=== PATIENT | female | born 1965 | race Caucasian/White ===

== ENCOUNTER 2018-05-20 09:46 | Emergency (ER) | END 2018-05-20 10:54 | disposition home or self-care (01) ==

== ENCOUNTER 2018-11-22 18:51 | Emergency (ER) | payer BC ==
[~2018-11-22] VITALS: Ht 162.6 cm; Wt 79.4 kg
[~2018-11-22 18:51] MED LIST: ACET325T33 PO; BENZ-6 PO; CETI1TAB6 PO; FLUT9.9S NASAL; HC30CR25 TOP; SODI30SP2 NS
[2018-11-22 19:00] VITALS: Ht 162.6 cm; Wt 79.4 kg
[2018-11-22] MEDS ORDERED: ONDANSETRON 4 MG INJ IV STA (20:52)
[2018-11-22] MEDS ORDERED: KETOROLAC 15 MG INJ IV STA (20:52)
[2018-11-22] MEDS ORDERED: SOD CHLORIDE 0.9% 1,000 ML IV STA (20:52)
--- NOTE | 2018-11-22 22:26 | ERD ---
ER Documentation Chief Complaint Chief Complaint abd pain/vomiting/diarrhea x 1 day HPI 53-year-old woman complaining of abdominal cramping diffusely, vomiting, diarrhea times 1 day. She has had no blood per rectum or melena, no fevers or chills, no chest pain or shortness of breath, she states because of the number of diarrhea episode she suspects dehydration and feels weak. She has had no unusual oral intake and no sick contacts. ROS All systems reviewed and are negative except as per history of present illness. Medications Home Meds Active Scripts Acetaminophen* (Tylenol*) 325 Mg Tablet, 2 TAB PO Q6 PRN for PAIN AND OR ELEVATED TEMP, #30 TAB Prov:ALEXA MOELLER PA-C 05/20/18 Fluticasone Propionate (Flonase Allergy Relief) 9.9 Ml Prentice.susp, 1 SPRAY NASAL BID for 28 Days, #1 BOTTLE TO EACH NOSTRIL Prov:ALEXA MOELLER PA-C 05/20/18 Reported Medications Ibuprofen* (Ibuprofen*) 600 Mg Tablet, 600 MG PO Q6H PRN for PAIN LEVEL 6-10, TAB 11/22/18 Discontinued Scripts Hydrocortisone* Topical (Hydrocortisone* Topical) 2.5%-28.3 Gm Cream..g., 1 APPLIC TOP BID, #1 TUB Prov:ALEXA MOELLER PA-C 05/20/18 Sodium Chloride (Saline Nasal Prentice) 30 Ml Prentice, 30 ML NS BID for 14 Days, SPRAY Prov:ALEXA MOELLER PA-C 05/20/18 Benzonatate* (Tessalon Perle*) 100 Mg Capsule, 100 MG PO Q8H PRN for COUGH, #30 CAP Prov:ALEXA MOELLER PA-C 05/20/18 Cetirizine/Pseudoephedrine (Zyrtec-D) 5-120 Mg Tab.er.12h, 1 TAB PO Q12, #20 TAB Prov:ALEXA MOELLERC 05/20/18 Allergies Allergies: Coded Allergies: No Known Allergy (Unverified , 05/20/18) PMhx/Soc History of Surgery: Yes (cholecystectomy,R SHOULDER AND WRIST SX,TONSILECTOMY,S INUS SX,) Anesthesia Reaction: No Hx Neurological Disorder: No Hx Respiratory Disorders: No Hx Cardiac Disorders: Yes (palpitations, heart murmur) Hx Psychiatric Problems: No Hx Miscellaneous Medical Probl: Yes (factor v leiden, budging disk) Hx Alcohol Use: No Hx Substance Use: No Hx Tobacco Use: No Smoking Status: Never smoker FmHx Family History: No diabetes Physical Exam Vitals Vital Signs Date Temp Pulse Resp B/P (MAP) Pulse Ox O2 O2 Flow FiO2 Time Delivery Rate 11/22/18 98.6 65 20 99/61 (74) 96 Room Air 23:25 11/22/18 98.6 71 17 114/63 98 Room Air 22:00 (80) 11/22/18 98.6 73 18 123/69 99 Room Air 20:22 (87) 11/22/18 98.4 73 18 124/58 97 19:00 (80) Physical Exam Const: No acute distress Head: Atraumatic Eyes: Normal Conjunctiva ENT: Normal External Ears, Nose and Mouth. Neck: Full range of motion. No meningismus. Resp: Clear to auscultation bilaterally Cardio: Regular rate and rhythm, no murmurs Abd: Soft, non tender, non distended. Normal bowel sounds Skin: No petechiae or rashes Back: No midline or flank tenderness Ext: No cyanosis, or edema Neur: Awake and alert Psych: Normal Mood and Affect Result Diagram: 11/22/18203811/22/182038 Results 24 hrs Laboratory Tests Test 11/22/18 20:25 11/22/18 20:39 11/22/18 20:48 11/22/18 20:49 Urine Color YELLOW Urine Clarity CLOUDY Urine pH 7.0 Urine Specific 1.024 [place] Urine Ketones NEGATIVE mg/dL Urine Nitrite NEGATIVE mg/dL Urine Bilirubin NEGATIVE mg/dL Urine Urobilinogen NEGATIVE mg/dL Urine Leukocyte NEGATIVE Sharon/ul Esterase Urine Microscopic 4 /HPF RBC Urine Microscopic 4 /HPF WBC Urine Squamous MODERATE /HPF Epithelial Cells Urine Bacteria FEW /HPF Urine Mucus FEW /HPF Urine Hemoglobin 1+ mg/dL Urine Glucose NEGATIVE mg/dL Urine Total Protein NEGATIVE mg/dl White Blood Count 9.7 10^3/ul Red Blood Count 4.54 10^6/ul Hemoglobin 14.2 g/dl Hematocrit 41.3 % Mean Corpuscular 91.0 fl Volume Mean Corpuscular 31.3 pg Hemoglobin Mean Corpuscular 34.4 g/dl Hemoglobin Concent Red Cell 13.2 % Distribution Width Platelet Count 351 10^3/UL Mean Platelet 8.9 fl Volume Immature 0.400 % Granulocytes % Neutrophils % 50.1 % Lymphocytes % 36.1 % Monocytes % 8.2 % Eosinophils % 4.6 % Basophils % 0.6 % Nucleated Red Blood 0.0 /100WBC Cells % Immature 0.040 10^3/ul Granulocytes # Neutrophils # 4.9 10^3/ul Lymphocytes # 3.5 10^3/ul Monocytes # 0.8 10^3/ul Eosinophils # 0.5 10^3/ul Basophils # 0.1 10^3/ul Nucleated Red Blood 0.0 10^3/ul Cells # Sodium Level 144 mmol/L Potassium Level 3.8 mmol/L Chloride Level 104 mmol/L Carbon Dioxide 30 mmol/L Level Anion Gap 10 Blood Urea Nitrogen 14 mg/dl Creatinine 0.73 mg/dl Est Glomerular > 60 mL/min Filtrat Rate mL/min Glucose Level 88 mg/dl Calcium Level 10.2 mg/dl Total Bilirubin 0.3 mg/dl Direct Bilirubin 0.00 mg/dl Indirect Bilirubin 0.3 mg/dl Aspartate Amino 33 IU/L Transf (AST/SGOT) Alanine 44 IU/L Aminotransferase (A LT/SGPT) Alkaline 93 IU/L Phosphatase Troponin I < 0.012 ng/ml Total Protein 8.6 g/dl Albumin 4.8 g/dl Globulin 3.80 g/dl Albumin/Globulin 1.26 Ratio Lipase 142 U/L Bedside Urine pH 7.5 (LAB) Bedside Urine 1+ Protein (LAB) Bedside Urine Negative Glucose (UA) Bedside Urine Negative Ketones (LAB) Bedside Urine Blood 1+ Bedside Urine Negative Nitrite (LAB) Bedside Urine Negative Leukocyte Esterase (L POC Beta HCG, NEGATIVE Qualitative Current Medications Medications Dose Sig/Shweta Start Time Status Last (Trade) Ordered Route PRN Stop Time Admin Dose Reason Admin Sodium 1,000 ml @ Q1H STAT 11/22/18 DC 11/22/18 Chloride 1,000 mls/hr IV 20:52 11/22/18 21:11 21:51 Ondansetron 4 mg ONCE STAT 11/22/18 DC 11/22/18 HCl (Zofran IV 20:52 11/22/18 21:11 Inj) 20:53 Ketorolac 15 mg ONCE STAT 11/22/18 DC 11/22/18 Tromethamine IV 20:52 11/22/18 21:11 (Toradol) 20:53 Procedures/MDM IV line was established patient was placed on cardiac rn rhythm strip revealed a sinus rhythm at about 60 bpm with upright P and T waves. Patient was afebrile EKG performed, read by me: 62 bpm, normal sinus rhythm, normal axis, no acute ST segment changes, narrow QRS complex, with good R-wave progression in precordial leads. I administered 1 L normal saline IV, Toradol 15 mg IV x1, Zofran 4 mg IV CBC and electrolytes were normal, liver function tests were normal, urinalysis negative for infection. CT scan of the abdomen and pelvis was ordered,IMPRESSION: 1. No bowel obstruction or ileus. Moderate retained stool right and 2. No evidence for diverticulitis. 3. Appendix not identified. No secondary evidence for appendicitis. 4. Status post cholecystectomy. 5. Otherwise negative. Differential diagnoses considered, included but not limited to acute coronary syndrome, pulmonary embolism, aortic dissection, abdominal aortic aneurysm, se psis, stroke, meningitis, encephalitis, pneumonia, appendicitis, cholecystitis, bowel obstruction, pyelonephritis, nephrolithiasis, cystitis, as well as metabolic, hematologic, and electrolyte abnormalities. As well as abscess, cellulitis, fractures, and dislocations. Patient feels much better at this time, and vital signs are normal, symptoms have improved. I did give strict instructions to return to the ED if symptoms continue or worsen, patient will otherwise follow-up with primary care phys ician. Patient understood instructions and agreed to plan. Disclaimer: Inadvertent spelling and grammatical errors are likely due to EHR/dictation software use and do not reflect on the overall quality of patient care. Also, please note that the electronic time recorded on this note does not necessarily reflect the actual time of the patient encounter. Departure Diagnosis: Primary Impression: Abdominal pain Abdominal location: generalized Qualified Codes: R10.84 - Generalized abdominal pain Additional Impression: Vomiting and diarrhea Condition: Good RUSS BANEGAS MD Nov 22, 2018 22:26
[2018-11-22] MEDS ORDERED: IBUP-1542 PO (23:42)
[2018-11-23] MEDS ORDERED: ONDA4TAB13 PO (00:23)
[2018-11-23] MEDS ORDERED: IBUP-1542 PO (00:23)
[2018-11-23] MEDS ORDERED: ONDANSETRON 4 MG INJ IV STA (00:24)
[2018-11-23 00:28] VITALS: BP 105/65; PULSE 71; RESP 20
== END 2018-11-23 00:28 | disposition home or self-care (01) ==
LOC: E/R 18:51
DX: R10.84 Generalized abdominal pain (principal); R19.7 Diarrhea, unspecified
CPT/HCPCS: 74176; 80053; 81001; 81003; 81025; 83690; 84484; 85025; 87086; J1885; J2405; J7030; 36415; 96361; 96374; 96375; 96376